=== PATIENT | female | born 1955 | race Hispanic/Latino ===

== ENCOUNTER 2017-01-18 09:29 | Outpatient (CLI) | payer OTHER ==
--- NOTE | 2017-01-18 14:28 | Mammography Report ---
BILATERAL DIGITAL SCREENING MAMMOGRAM with CAD: 01/18/17 09:29:00 CLINICAL: Routine screening. COMPARISON:None. A previous [facility] mammogram is not available. FINDINGS: The breasts are almost entirely fatty. No mass, architectural distortion or suspicious calcifications. IMPRESSION: No mammographic evidence of malignancy. BI-RADS CATEGORY: 1 - - Negative RECOMMENDATION: Routine mammographic screening in one year. COMMENT: Patient follow-up letters are generated by our [employer] application.
== END 2017-01-18 09:30 | disposition home or self-care (01) ==
LOC: SPVWC 09:29
PROVIDERS: ATTEND Family Medicine
DX: Z12.31 Encounter for screening mammogram for malignant neoplasm of breast (principal)
CPT/HCPCS: 77067; G0202

== ENCOUNTER 2019-10-17 11:13 | Outpatient (CLI) | payer OTHER ==
--- NOTE | 2019-10-17 13:38 | Ultrasound Report ---
ULTRASOUND THYROID INDICATION / CLINICAL INFORMATION: E04.1ICD-10-CM Code E04.1 - Nontoxic single thyroid nodule. COMPARISON: None available. FINDINGS: RIGHT LOBE: Surgically absent. LEFT LOBE: Size = 4.0 x 1.7 x 1.1 cm. - Echogenicity: Heterogeneous - Vascularity: Normal. - Nodules < 1 cm: None. - Nodules >= 1 cm or Suspicious Nodules: None. ISTHMUS: No significant abnormality. Thickness = 0.4 cm. - Nodules < 1 cm: There are 2 isoechoic/hyperechoic subcentimeter nodules. - Nodules >= 1 cm or Suspicious Nodules: See below. NODULE #1 Location: left upper Size: 1.5 x 1.0 x 0.7 cm Composition: Solid = 2 points Echogenicity: Hypoechoic = 2 points Shape: Emyev-fkck-fnxa = 0 points Margin: Ill-defined = 0 points Echogenic Foci: None = 0 points ACR TI-RADS Score = 4. ACR TI-RADS Category TR4 (4-6 points). Recommendation: Follow-up US in 1 year. LYMPH NODES: No abnormal lymph nodes. PARATHYROID GLANDS: No abnormal parathyroid gland. ADDITIONAL FINDINGS: None. IMPRESSION: 1. Prior right thyroidectomy. 2. Category 4 lesion in the upper pole of the left thyroid lobe, as above. Per guidelines, sonographi c follow-up is recommended in one year. Note: Nodule size based on mean (average) size of 3 dimensions. Note: Nodules < 1 cm do not typically require follow-up or FNA unless there are suspicious features ( SHARLENE, 2015) ACR TI-RADS Thyroid Nodule Recommendations TI-RADS 1 (0 points) -- Benign. No FNA or follow-up. TI-RADS 2 (1-2 points) -- Not suspicious. No FNA or follow-up. TI-RADS 3 (3 points) -- Mildly suspicious. Follow up in 1 year if 1.5 cm. FNA if 2.5 cm. TI-RADS 4 (4-6 points) -- Moderately suspicious. Follow up in 1 year if 1.0 cm. FNA if 1.5 cm. TI-RADS 5 (7+ points) -- Highly suspicious. Follow up in 1 year if 0.5 cm. FNA if 1.0 cm. Signer Name: Ramon Amin MD Signed: 10/17/2019 1:34 PM Workstation Name: [id number]
--- NOTE | 2019-10-17 14:30 | Mammography Report ---
DIGITAL SCREENING MAMMOGRAM WITH CAD, 10/17/2019 INDICATION: Routine screening mammography. TECHNIQUE: Digital bilateral 2D mammography was obtained in the craniocaudal and mediolateral obliq ue projections. This examination was interpreted with the benefit of Computer-Aided Detection analysi s. COMPARISON: 09/17/2018 FINDINGS: Breast Density: The breasts are almost entirely fatty. There is no evidence of dominant mass, suspicious calcifications or architectural distortion in eithe r breast. IMPRESSION: No mammographic evidence of malignancy. Follow up recommendation: Routine yearly BI-RADS Category 1: Negative. A "normal" or negative report should not discourage follow up or biopsy of a clinically significant f inding. A written summary of these findings will be mailed to the patient. The patient will be entered into a mammography reporting system which will generate a reminder letter for the patient's next appointmen t at the appropriate interval. The [employer] recommends yearly mammograms starting at age 40 and continuing as l keren as a woman is in good health. Breast MRI is recommended for women with an approximate 20-25% or greater lifetime risk of breast cancer, including women with a strong family history of breast or ova preet cancer or who have been treated for Hodgkin's disease. Signer Name: Giorgio Gibson MD Signed: 10/17/2019 2:25 PM Workstation Name: [id number]
== END 2019-10-17 11:14 | disposition home or self-care (01) ==
LOC: MAMMO 11:13
PROVIDERS: ATTEND Family Medicine
DX: Z12.31 Encounter for screening mammogram for malignant neoplasm of breast (principal); E04.1 Nontoxic single thyroid nodule
CPT/HCPCS: 76536; 77067